=== PATIENT | male | born 2000 | race Caucasian/White ===

== ENCOUNTER 2021-06-23 18:23 | Emergency (ER) | payer OTHER ==
[~2021-06-23] VITALS: Ht 175.3 cm; Wt 134.7 kg
[2021-06-23 18:35] VITALS: BP 123/66
[2021-06-23] MEDS ORDERED: ALBUTEROL SULFATE/IPRATROPIU 3 ML SOL IH ONE (19:50)
[2021-06-23] MEDS ORDERED: predniSONE 20 MG TAB PO ONE (19:50)
--- NOTE | 2021-06-23 19:56 | NUR ---
REDD MALHOTRA AT BEDSIDE EXAMINING PT.
--- NOTE | 2021-06-23 20:03 | NUR ---
rt at bedside
--- NOTE | 2021-06-23 20:18 | NUR ---
FLU AND COVID SWABS COLLECTED AND WALKED TO LAB
[2021-06-23] MEDS ORDERED: PRED20TA5 PO (20:22)
[2021-06-23] MEDS ORDERED: ALBU0.0912 IH (20:22)
--- NOTE | 2021-06-23 20:57 | NUR ---
20/M BIB SELF WITH C/O SOB, CP AND LOWER BACK PAIN SINCE YESTERDAY, REPORTS TODAY WORSENING. HAS HX OF ASTHMA, STATES "I TOOK MY INHALER BUT I THINK ITS BROKEN." O2 SAT 94% IN TRIAGE. AMBULATORY, TACHYPNIC, REGULAR BREATHING EFFORT. PT SITTING IN BED FULL FOWLERS WITH RAIL UP X1 AND BED IN LOWEST SETTING. MEDHX: ASTHMA ALLERGIES: NKA
[2021-06-23] MEDS ORDERED: OSELTAMIVIR PHOSPHATE 75 MG CAP PO ONE (21:55)
[2021-06-23] MEDS ORDERED: TAM75 PO (21:55)
[2021-06-23 22:10] VITALS: BP 123/66
--- NOTE | 2021-06-23 22:13 | NUR ---
Patient discharged with v/s stable. Written and verbal after care instructions given and explained. Patient alert, oriented and verbalized understanding of instructions. Ambulatory with steady gait. All questions addressed prior to discharge. ID band removed. Patient advised to follow up with PMD. Rx of ALBUTEROL SULFATE, DELTASONE, AND TAMIFLU given. Patient educated on indication of medication including possible reaction and side effects. Opportunity to ask questions provided and answered. VSS, A/OX4, UNLABORED BREATHING, AMBULATORY, AND CALM DEMEANOR.
== END 2021-06-23 23:13 | disposition home or self-care (01) ==
LOC: MED 18:23
DX: J45.901 Unspecified asthma with (acute) exacerbation (principal); Z20.822 Contact with and (suspected) exposure to COVID-19; B34.9 Viral infection, unspecified; J10.1 Influenza due to other identified influenza virus with other respiratory manifestations; Z79.899 Other long term (current) drug therapy
CPT/HCPCS: 71045; 87426; 87804; 93005; 94640; 99285; J7512

== ENCOUNTER 2021-09-27 18:55 | Emergency (ER) | payer OTHER ==
[~2021-09-27] VITALS: Ht 175.3 cm; Wt 127.0 kg
[~2021-09-27 18:55] MED LIST: ALBU0.0912 IH; PRED20TA5 PO; TAM75 PO
[2021-09-27 19:05] VITALS: BP 120/76
--- NOTE | 2021-09-27 19:12 | NUR ---
Dr. Ascencio examining patient
[2021-09-27] MEDS ORDERED: DEXAMETHASONE 10 MG/ML VIAL IM ONE (19:15)
--- NOTE | 2021-09-27 19:20 | NUR ---
Patient taken to radiology dept.
[2021-09-27] MEDS ORDERED: ALBUTEROL SULFATE/IPRATROPIU 3 ML SOL IH ONE ×2 (19:30→20:50)
--- NOTE | 2021-09-27 19:44 | NUR ---
RT at Chair B for breathing treatments.
--- NOTE | 2021-09-27 20:22 | NUR ---
Dr. Ascencio explained results and treatments plan.
[2021-09-27] MEDS ORDERED: PRED50TA3 PO (20:24)
[2021-09-27] MEDS ORDERED: ALBU0.0912 INH (20:36)
--- NOTE | 2021-09-27 20:48 | NUR ---
RT at Chair B for breathing treatments.
[2021-09-27 21:16] VITALS: BP 108/65
--- NOTE | 2021-09-27 21:16 | NUR ---
Patient discharged with v/s stable. Written and verbal after care instructions given and explained for Asthma. Patient alert, oriented and verbalized understanding of instructions. Ambulatory with steady gait. All questions addressed prior to discharge. ID band removed. Patient advised to follow up with PMD. Rx of IH meds and Prednisone given. Patient educated on indication of medication including possible reaction and side effects. Opportunity to ask questions provided and answered.
== END 2021-09-27 21:16 | disposition home or self-care (01) ==
LOC: MED 18:55
DX: J45.901 Unspecified asthma with (acute) exacerbation (principal); B34.9 Viral infection, unspecified; Z79.899 Other long term (current) drug therapy
CPT/HCPCS: 71045; 96372; 99283; J1100; 94640